=== PATIENT | male | born 1965 | race Two or more races ===

== ENCOUNTER 2017-06-13 22:46 | Emergency (ER) | payer OTHER | END 2017-06-14 00:23 | disposition home or self-care (01) | LOC: ER 06-14 00:23 | DX: M25.532 Pain in left wrist (principal); J01.90 Acute sinusitis, unspecified; K21.9 Gastro-esophageal reflux disease without esophagitis | CPT/HCPCS: 29125; 73110; 99284-25 ==

== ENCOUNTER 2017-06-28 22:03 | Emergency (ER) | payer OTHER | END 2017-06-28 22:58 | disposition home or self-care (01) | LOC: ER 22:58 | DX: J32.9 Chronic sinusitis, unspecified (principal); J06.9 Acute upper respiratory infection, unspecified; K21.9 Gastro-esophageal reflux disease without esophagitis | CPT/HCPCS: 99283 ==